=== PATIENT | female | born 1960 | race Caucasian/White ===

== ENCOUNTER 2017-10-15 11:53 | Inpatient (IN) | payer OTHER ==
[~2017-10-15] VITALS: Ht 149.9 cm; Wt 81.8 kg
[2017-10-15] VITALS (8 sets, daily range): BP systolic 142–167; BP diastolic 82–96; Ht 149.9 cm; Wt 81.8 kg
[2017-10-15 12:37] LABS: BASOPHILS 0.6 % (0-2); EOSINOPHILS 4.3 % (0-7); HEMATOCRIT 39.7 % (36.0-48.0); HEMOGLOBIN 13.5 g/dL (12-16); IMMATURE GRANULOCYTES 0.5 % (0-5); LYMPHOCYTES 26.6 % (15-50); MCH 28.6 pg (26.0-34.0); MCV 84.1 fL (80.0-100.0); MEAN PLATELET VOLUME 12.1 fL (7.4-10.4); MONOCYTES 7.9 % (2-11); NEUTROPHILS 60.1 % (40-80); PLATELET COUNT 213 10x3/uL (130-400); RBC 4.72 10x6/uL (4.00-5.40); RDW 12.8 % (11.5-14.5); WBC 8.1 10x3/uL (4.8-10.8)
[2017-10-15 12:38] LABS: APPEARANCE CLEAR (CLEAR); COLOR YELLOW (YELLOW); GLUCOSE 100 mg/dL (NEGATIVE); NITRITE NEGATIVE (NEGATIVE); PROTEIN 1+ mg/dL (NEGATIVE); SPECIFIC GRAVITY 1.015 (1.005-1.020)
[2017-10-15 12:39] LABS: BACTERIA FEW /hpf (NONE SEEN); BILIRUBIN NEGATIVE (NEGATIVE); EPITHELIAL CELLS 0-5 /hpf (0-5); KETONE NEGATIVE (NEGATIVE); UROBILINOGEN NORMAL (NORMAL); WHITE CELLS - URINE 0-5 /hpf (0-5)
[2017-10-15 12:52] LABS: AMYLASE - SERUM 17 U/L (25-115); LIPASE 101 U/L (73-393)
[2017-10-15 14:14] LABS: ALBUMIN 3.8 g/dL (3.4-5.0); ANION GAP 21.7 mmol/L (8-16); BILIRUBIN - TOTAL 0.38 mg/dL (0.2-1.3); CALCIUM 9.3 mg/dL (8.5-10.1); CARBON DIOXIDE 21.3 mmol/L (21.0-32.0); CREATININE - SERUM 1.1 mg/dL (0.6-1.3); PROTEIN - SERUM 7.7 g/dL (6.4-8.2)
[2017-10-15] MEDS ORDERED: IBUPROFEN600 MG PO (21:46)
[2017-10-15] MEDS ORDERED: CIPRO500 MG PO (21:46)
[2017-10-16 00:21] VITALS: BP 149/79
[2017-10-16 04:15] VITALS: BP 148/67
[2017-10-16 08:00] VITALS: BP 165/83
[2017-10-16] MEDS ORDERED: MIRALAX17 GM PO (10:23)
[2017-10-16] MEDS ORDERED: HYDROCODON-ACE1 EAC7 PO (10:23)
== END 2017-10-16 13:45 | disposition home or self-care (01) | DRG 340 ==
LOC: D.ER 11:53 → OBSVTIME 14:54 → D.LD 14:54
PROVIDERS: Family Medicine; Surgery
PROC: 0DTJ4ZZ Resection of Appendix, Percutaneous Endoscopic Approach (ICD-10-PCS; principal; 2017-10-15 15:00)
DX: K35.3 Acute appendicitis with localized peritonitis (principal)